=== PATIENT | female | born 1975 | race Caucasian/White ===

== ENCOUNTER 2017-03-23 12:04 | Day surgery (SDC) | payer MEDICAID ==
[~2017-03-23] VITALS: Ht 157.5 cm; Wt 80.5 kg
[2017-03-23] VITALS (9 sets, daily range): BP systolic 119–138; BP diastolic 63–77; PULSE 76–86; RESP 13–18; Ht 157.5 cm; Wt 80.5 kg
[2017-03-23 13:13] LABS: ADD SCAN DIFF NO
[2017-03-23 13:19] LABS: BASOPHILS % 0.3 % (0.0-2.0); EOSINOPHILS # 0.3 10^3/ul (0.0-0.5); EOSINOPHILS % 3.8 % (0.0-7.0); HEMOGLOBIN 13.6 g/dl (12.0-16.0); LYMPHOCYTES % 27.1 % (15.0-51.0); MEAN CORPUSCULAR HEMOGLOBIN 29.6 pg (29.0-33.0); MEAN CORPUSCULAR HGB CONC 33.2 g/dl (32.0-37.0); MEAN CORPUSCULAR VOLUME 89.3 fl (82.0-101.0); MEAN PLATELET VOLUME 9.1 fl (7.4-10.4); MONOCYTE # 0.5 10^3/ul (0.3-0.9); MONOCYTES % 7.2 % (0.0-11.0); NEUTROPHIL # 4.5 10^3/ul (1.6-7.5); NEUTROPHILS % 61.3 % (39.0-77.0); PLATELET COUNT 289 10^3/UL (140-415); RED BLOOD COUNT 4.59 10^6/ul (4.20-5.40); RED CELL DISTRIBUTION WIDTH 13.4 % (11.5-14.5); WHITE BLOOD COUNT 7.4 10^3/ul (4.8-10.8)
[2017-03-23] MEDS ORDERED: LACTATED RINGER'S 1,000 ML IV SCH ×2 (14:00→17:25)
[2017-03-23] MEDS ORDERED: CEFAZOLIN 1 GM INJ ONE (16:40)
[2017-03-23] MEDS ORDERED: MIDAZOLAM 1 MG/ML 2 ML INJ ONE (16:40)
[2017-03-23] MEDS ORDERED: FENTAnyl 50 MCG/ML VIAL ONE (16:40)
[2017-03-23] MEDS ORDERED: PROPOFOL 20 ML ONE (16:40)
--- NOTE | 2017-03-23 16:43 | HP ---
Date/Time of Note Date/Time of Note DATE: 03/23/17 TIME: 16:39 Assessment/Plan VTE Prophylaxis VTE Prophylaxis Intervention: ambulation Lines/Catheters IV Catheter Type (from Nrsg): Peripheral IV Assessment/Plan Assessment/Plan multiparty with desire for sterilization elected intrafallopian tubes Essure apparatus placement will proceed with hysteroscopic placement of Essure HPI/ROS Admit Date/Time Admit Date/Time 03/23/2017 Hx of Present Illness 42 y/o female admitted for Essure placement ROS Unremarkable Constitutional: improved, no complaints Eyes: no complaints ENT: no complaints Respiratory: no complaints Cardiovascular: no complaints Gastrointestinal: no complaints Genitourinary: no complaints Musculoskeletal: no complaints Skin: no complaints Neurologic: no complaints Endocrine: no complaints Lymphatic: no complaints Psychological: nl mood/affect, no complaints Immunologic: no complaints PMH/Family/Social Past Medical History Medical History: no pertinent history Past Surgical History Past Surgical Hx: appendectomy, cholecystectomy Family History Significant Family History: no pertinent family hx Social History Alcohol Use: none Smoking Status: Never smoker Drug Use: none Exam/Review of Systems Vital Signs Vitals Vital Signs Date Time Temp Pulse Resp B/P Pulse Ox O2 Delivery O2 Flow Rate FiO2 03/23/17 13:53 98.9 81 16 123/75 99 Room Air Exam Constitutional: alert, oriented, well developed Psych: nl mood/affect, no complaints Head: atraumatic, normocephalic Eyes: EOMI, PERRL, nl conjunctiva, nl lids, nl sclera ENMT: nl external ears & nose, nl lips & teeth, nl nasal mucosa & septum Neck: non-tender, supple Respiratory: clear to auscultation, normal air movement Cardiovascular: nl pulses, regular rate and rhythm Gastrointestinal: nl liver, spleen, non-tender, soft Musculoskeletal: nl extremities to inspection Extremities: normal pulses Neurological: HOME STAGER II-XII intact, nl mental status, nl speech, nl strength Skin: nl turgor, No rash or lesions Lymph: nl lymph nodes Labs Result Diagram: 03/23/17 1306 Medications Medications Current Medications Lactated Ringer's (Lr) 1,000 ml @ 125 mls/hr Q8H IV ; Start 03/23/17 at 14:00 KIM DUBON MD March 23, 2017 16:43
[2017-03-23] MEDS ORDERED: DIPHENHYDRAMINE 50 MG INJ IV PRN (17:00)
[2017-03-23] MEDS ORDERED: morphine (1 MG/ML) 10ML SYRINGE IV PRN ×3 (17:00)
[2017-03-23] MEDS ORDERED: METOCLOPRAMIDE 10 MG INJ IV PRN (17:00)
[2017-03-23] MEDS ORDERED: hydrALAzine 20 MG INJ IV PRN (17:00)
[2017-03-23] MEDS ORDERED: EPHEDrine SULFATE 50 MG/5 ML SYG IV PRN (17:00)
[2017-03-23] MEDS ORDERED: ONDANSETRON 4 MG INJ IV PRN (17:00)
[2017-03-23] MEDS ORDERED: LABETALOL HCL 20MG INJ IV PRN (17:00)
[2017-03-23] MEDS ORDERED: MEPERIDINE 25 MG INJ IV PRN (17:00)
[2017-03-23] MEDS ORDERED: HYDROmorphONE (0.2 MG/ML) 10ML SYG IV PRN ×3 (17:00)
[2017-03-23] MEDS ORDERED: DEXAMETHASONE 4 MG/ML 1 ML INJ ONE (17:06)
[2017-03-23] MEDS ORDERED: KETOROLAC 30 MG INJ ONE (17:06)
[2017-03-23] MEDS ORDERED: ONDANSETRON 4 MG INJ ONE (17:06)
[2017-03-23] MEDS ORDERED: METOCLOPRAMIDE 10 MG INJ ONE (17:06)
[2017-03-23] MEDS ORDERED: KETOROLAC 30 MG INJ IM STA (17:25)
[2017-03-23] MEDS ORDERED: DOXYCYCLINE 100 MG TAB PO ONE (17:30)
[2017-03-23] MEDS ORDERED: BUTORPHANOL 2 MG INJ IM ONE (17:30)
--- NOTE | 2017-03-23 18:12 | OPR ---
DATE OF OPERATION: 03/23/2017 PREOPERATIVE DIAGNOSES: 1. Multiparity with desire for sterilization. 2. Patient has elected to have tubal occlusion with Essure apparatus placement. POSTOPERATIVE DIAGNOSES: 1. Multiparity with desire for sterilization. 2. Patient has elected to have tubal occlusion with Essure apparatus placement. 3. Status post Essure apparatus placement. OPERATION PERFORMED:. Placement of Essure apparatus into fallopian tubes. SURGEON: Kim Garcia MD ANESTHESIOLOGIST: Kwan Bernstein TYPE OF ANESTHESIA: General. PROCEDURE: The patient was placed on the OR table in supine position. General anesthesia was induced. Patient was taken to lithotomy position. Perineal and vaginal area were prepped, draped for usual vaginal procedure. Under satisfactory anesthesia, a weighted speculum was inserted into vagina. Anterior lip of the cervix was secured with an Allis clamp. Cervix was brought down to operative field. With hydropressure, cervix was spontaneously and 0.5 cm trocar was introduced inside the uterine cavity. The ostium of both fallopian tubes were adequately visualized. The right fallopian tube was approached first. After guiding the Essure apparatus through the scope and through the ostium of the fallopian tube, the Essure apparatus was adequately lodged then placed inside the right fallopian tube. Same procedure was repeated on the left side without any difficulty. At this point, all of the instruments were removed from the uterine and vaginal cavity, announcing needle , lap, sponge and instrument count to be correct. The patient was returned to supine position and procedure was terminated. ESTIMATED BLOOD LOSS: Less than 1 mL and the patient did not have any complications during the surgery. Dictated By: KIM CALZADA/PARTH Conf#: [id number] DID#: [id number]
== END 2017-03-23 18:52 | disposition home or self-care (01) ==
LOC: SDS 12:04
PROVIDERS: ATTEND Obstetrics & Gynecology
DX: Z30.2 Encounter for sterilization (principal)
CPT/HCPCS: 58565; 84703; 85025; 86850; 86900; 86901; A4264; J0595; J0690; J1100; J1885; J2250; J2405; J2765; J3010; Z7512; Z7610